=== PATIENT | female | born 1985 | race Caucasian/White ===

== ENCOUNTER 2017-07-07 10:42 | Emergency (ER) | payer SELFPAY ==
[2017-07-07] MEDS ORDERED: OXYCODONE-ACETAMINOPHEN 5-325 MG TABLET PO ONE (11:29)
[2017-07-07] MEDS ORDERED: LIDOCAINE 5% (700 MG) TRANSDERMAL ADH..PATCH TP ONE (11:29)
--- NOTE | 2017-07-07 11:30 | ER Document Report ---
HPI - HPI Patient complains to provider of: r hip pain Onset: Other - 2 wks Onset/Duration: Persistent Quality of pain: Achy Pain Level: 5 Context: Patient presents complaining of right lateral hip pain for the past 2 weeks. Patient states she does do a lot of heavy lifting at her job. Patient denies any specific injury. Associated Symptoms: Other - Right lateral hip pain Exacerbated by: Standing, Movement, Walking Relieved by: Denies Similar symptoms previously: No Recently seen / treated by doctor: No - ROS ROS below otherwise negative: Yes Systems Reviewed and Negative: Yes All other systems reviewed and negative - CONSTITUTIONAL Constitutional: DENIES: Fever - NEURO Neurology: DENIES: Weakness - REPRODUCTIVE Reproductive: DENIES: : - MUSCULOSKELETAL Musculoskeletal: REPORTS: Extremity pain - right hip - DERM Skin Color: Normal Skin Problems: None Past Medical History - General Information source: Patient - Social History Smoking Status: Current Every Day Smoker Smoking Education Provided: Yes Frequency of alcohol use: Rare Drug Abuse: None Occupation: [address] Lives with: Family Family History: Reviewed & Not Pertinent Patient has suicidal ideation: No Patient has homicidal ideation: No - Past Medical History Cardiac Medical History: Denies: Hx Coronary Artery Disease, Hx Hypertension Pulmonary Medical History: Reports: Hx Asthma Endocrine Medical History: Denies: Hx Diabetes Mellitus Type 1, Hx Diabetes Mellitus Type 2 Renal/ Medical History: Denies: Hx Peritoneal Dialysis Past Surgical History: Reports: Hx Section, Hx Umbilical Hernia - Immunizations Hx Diphtheria, Pertussis, Tetanus Vaccination: Yes - already received Vertical Provider Document - CONSTITUTIONAL Agree With Documented VS: Yes Exam Limitations: No Limitations General Appearance: WD/WN, No Apparent Distress - INFECTION CONTROL TRAVEL OUTSIDE OF THE [place] IN LAST 30 DAYS: No - HEENT HEENT: Atraumatic, Normocephalic - NECK Neck: Normal Inspection - RESPIRATORY Respiratory: Breath Sounds Normal, No Respiratory Distress O2 Sat by Pulse Oximetry: 99 - CARDIOVASCULAR Cardiovascular: Regular Rate, Regular Rhythm Pulses: Normal: Posterior tibial, Dorsalis pedis - BACK Back: Normal Inspection. negative: CVA Tenderness-Right, CVA Tenderness-Left - MUSCULOSKELETAL/EXTREMETIES Musculoskeletal/Extremeties: MAEW, Tender - Right hip tenderness over lateral aspect, no dislocation or deformity. Tenderness increases with adduction, No Edema Notes: Normal skin color and temperature overlying joint - NEURO Level of Consciousness: Awake, Alert, Appropriate Motor/Sensory: No Motor Deficit - DERM Integumentary: Warm, Dry, No Rash Course - Vital Signs Vital signs: Temp Pulse Resp BP Pulse Ox 98.5 F 88 16 115/75 99 07/07/17 10:51 07/07/17 10:51 07/07/17 10:51 07/07/17 10:51 07/07/17 10:51 - Diagnostic Test Radiology reviewed: Reports reviewed Discharge - Discharge Clinical Impression: Right hip pain Condition: Stable Disposition: HOME, SELF-CARE Instructions: Anti-Inflammatory Medication ([facility]), Use of Crutches ([facility]), Oral Narcotic Medication ([facility]) Additional Instructions: Return immediately for any new or worsening symptoms Followup with your primary care provider, call tomorrow to make a followup appointment Weightbearing as tolerated Follow-up with orthopedic doctor for further evaluation, call tomorrow for an appointment Prescriptions: Naproxen [Naprosyn 250 Nmg Tablet] 1 tab PO BID #14 tablet Oxycodone HCl/Acetaminophen [Percocet 5-325 mg Tablet] 1 tab PO ASDIR PRN #10 tablet PRN Reason: Forms: Smoking Cessation Education, Return to Work Referrals: CHAVA,NO [Primary Care Provider] - Follow up as needed [facility] [Provider Group] - Follow up as needed [facility] [Provider Group] - Follow up as needed [facility] [Provider Group] - Follow up tomorrow
[2017-07-07] MEDS ORDERED: IBUPROFEN 800 MG TABLET PO ONE (11:31)
--- NOTE | 2017-07-07 12:23 | RADIOLOGY REPORT (SQ) ---
EXAM DESCRIPTION: HIP RIGHT AP/LATERAL COMPLETED DATE/TIME: 07/07/2017 12:11 pm REASON FOR STUDY: r hip pain COMPARISON: None. NUMBER OF VIEWS: Two views. TECHNIQUE: AP pelvis and additional frog-leg view of the right hip. LIMITATIONS: None. FINDINGS: MINERALIZATION: Normal. RIGHT HIP: No fracture or dislocation. No worrisome bone lesions. No contour deformity. No joint sp villa narrowing. LEFT HIP: No fracture or dislocation. No worrisome bone lesions. PUBIS AND ISCHIUM: No fracture. PELVIS: No fracture. SACRUM: No fracture or dislocation. No worrisome bone lesions. LOWER LUMBAR SPINE: No fracture or dislocation. No worrisome bone lesions. No significant disc disea se. SOFT TISSUES: No findings. OTHER: No other significant finding. IMPRESSION: NEGATIVE STUDY OF THE RIGHT HIP. NO EXPLANATION FOR PAIN. TECHNICAL DOCUMENTATION: JOB ID: [id number] [employer]- All Rights Reserved Reading location - IP/workstation name: [email or web address]
[2017-07-07 13:29] VITALS: BP 117/86
== END 2017-07-07 13:26 | disposition home or self-care (01) ==
LOC: ER 10:42
DX: M25.551 Pain in right hip (principal); F17.200 Nicotine dependence, unspecified, uncomplicated; J45.909 Unspecified asthma, uncomplicated
CPT/HCPCS: 99283

== ENCOUNTER 2017-09-19 17:44 | Emergency (ER) | payer SELFPAY ==
[2017-09-19 17:54] VITALS: BP 103/60
== END 2017-09-19 19:41 | disposition left against medical advice (07) ==
LOC: ER 17:44
DX: Z53.21 Procedure and treatment not carried out due to patient leaving prior to being seen by health care provider (principal)

== ENCOUNTER 2018-09-21 11:23 | Outpatient (CLI) | payer MEDICAID ==
[2018-09-21 11:55] LABS: ABSOLUTE BASOPHILS # (AUTO) 0.1 10^3/uL (0.0-0.2); ABSOLUTE EOSINOPHILS # (AUTO) 0.2 10^3/uL (0.0-0.6); ABSOLUTE LYMPHOCYTES (AUTO) 2.3 10^3/uL (0.5-4.7); ABSOLUTE MONOCYTES (AUTO) 0.5 10^3/uL (0.1-1.4); ABSOLUTE NEUT (AUTO) 9.4 10^3/uL (1.7-8.2); BASOPHILS % (AUTO) 0.5 % (0-2); EOSINOPHILS % (AUTO) 1.3 % (0-6); HEMATOCRIT 29.3 % (36.0-47.0); HEMOGLOBIN 9.9 g/dL (12.0-15.5); LYMPHOCYTES % (AUTO) 18.2 % (13-45); MEAN CORPUSCULAR HEMOGLOBIN 29.7 pg (27.0-33.4); MEAN CORPUSCULAR HGB CONC 33.8 g/dL (32.0-36.0); MEAN CORPUSCULAR VOLUME 88 fl (80-97); MONOCYTES % (AUTO) 4.4 % (3-13); PLATELET COUNT 340 10^3/uL (150-450); RED BLOOD COUNT 3.33 10^6/uL (3.72-5.28); RED CELL DISTRIBUTION WIDTH 13.5 % (11.5-14.0); SEGMENTED NEUTROPHILS % (AUTO) 75.6 % (42-78); TOTAL CELLS COUNTED % (AUTO) 100 %; WHITE BLOOD COUNT 12.5 10^3/uL (4.0-10.5)
[2018-09-21 12:03] LABS: APPEARANCE,URINE SLIGHTLY-CLOUDY; BILIRUBIN,URINE NEGATIVE (NEGATIVE); COLOR,URINE AMBER; GLUCOSE, URINE NEGATIVE (NEGATIVE); KETONES,URINE NEGATIVE (NEGATIVE); LEUKOCYTE ESTERASE,URINE TRACE (NEGATIVE); NITRITE,URINE NEGATIVE (NEGATIVE); PROTEIN,URINE 100 mg/dL (NEGATIVE); URINE SPECIFIC GRAVITY 1.016; UROBILINOGEN,URINE NEGATIVE mg/dL (<2.0)
[2018-09-21] MEDS ORDERED: RINGERS SOLUTION,LACTATED 1,000 ML IV PRN (12:08)
[2018-09-21 12:16] LABS: ALANINE AMINOTRANSFERASE 31 U/L (9-52); ALBUMIN 3.8 g/dL (3.5-5.0); ALKALINE PHOSPHATASE 165 U/L (38-126); ANION GAP 9 (5-19); ASPARTATE AMINO TRANSFERASE 24 U/L (14-36); BILIRUBIN,DIRECT 0.4 mg/dL (0.0-0.4); BILIRUBIN,TOTAL 0.5 mg/dL (0.2-1.3); BLOOD UREA NITROGEN 8 mg/dL (7-20); CALCIUM 9.4 mg/dL (8.4-10.2); CARBON DIOXIDE 22 mmol/L (22-30); CHLORIDE 106 mmol/L (98-107); GLUCOSE 79 mg/dL (75-110); SODIUM 136.8 mmol/L (137-145); TOTAL PROTEIN 6.9 g/dL (6.3-8.2); URIC ACID 5.5 mg/dL (2.5-6.2)
[2018-09-21 12:25] LABS: URINE AMPHETAMINES SCREEN NEGATIVE; URINE BARBITURATES SCREEN NEGATIVE; URINE BENZODIAZEPINES SCREEN NEGATIVE; URINE COCAINE SCREEN NEGATIVE; URINE MARIJUANA (THC) SCREEN NEGATIVE; URINE METHADONE SCREEN NEGATIVE; URINE PHENCYCLIDINE SCREEN NEGATIVE
[2018-09-21 12:30] LABS: UR PRO/CREAT RATIO RESULT 1.6 mg/mg (0.0-0.2); URINE PROTEIN 268.9 mg/dL (<12)
[2018-09-21] MEDS ORDERED: DEXTROSE 5%-LACTATED RINGERS 1,000 ML IV ONE (12:59)
--- NOTE | 2018-09-21 14:46 | RADIOLOGY REPORT (SQ) ---
EXAM DESCRIPTION: U/S PROFILE W/O STRESS COMPLETED DATE/TIME: 09/21/2018 2:36 pm REASON FOR STUDY: pre term labor COMPARISON: None. TECHNIQUE: Limited fletcher-scale realtime and static images of the fetus to measure specified parameter s. LIMITATIONS: None. FINDINGS: HEART RATE: 127 beats per minute. KLAUDIA: 16.1 cm. BREATHING MOVEMENT: 2 points. MOVEMENT: 2 points. POSTURE AND TONE: 2 points. QUALITATIVE KLAUDIA: 2 points. OTHER: No other significant finding. IMPRESSION: BIOPHYSICAL PROFILE: 12/07. Trimester of : Third - 28 weeks to delivery COMMENT: BREATHING MOVEMENTS: 2 POINTS: PRESENT 0 POINTS: ABSENT MOTION: 2 POINTS: PRESENT 0 POINTS: ABSENT TONE: 2 POINTS: PRESENT 0 POINTS: ABSENT AMNIOTIC FLUID VOLUME: 2 POINTS: LARGEST POCKET GREATER THAN 2 CM DEPTH. 0 POINTS: NO POCKET OF 2 CM. TECHNICAL DOCUMENTATION: JOB ID: [id number] [employer]- All Rights Reserved Reading location - IP/workstation name: [email or web address]
--- NOTE | 2018-09-21 14:49 | RADIOLOGY REPORT (SQ) ---
EXAM DESCRIPTION: U/S OB 14+ TRNABD 1GES W/O DOP COMPLETED DATE/TIME: 09/21/2018 2:36 pm REASON FOR STUDY: assess growth and placenta COMPARISON: None. TECHNIQUE: Static and Dynamic grayscale imaging performed of gravid uterus using transabdominal appr oach. Additional selected color Doppler and spectral images recorded. All stored on PACS. LIMITATIONS: None. FINDINGS: FETUSES SEEN:1 EGA: 36 weeks 4 days Calculated using BPD,FL,HC,AC documented on images. No discrepancy with clinica l dates. HARRY: 10/15/2018 EFW: 2,874 grams PERCENTILE: 40 seconds KLAUDIA: 16.1 PLACENTA: Anterior. GRADE: II PRESENTATION: Cephalic. ANATOMY: HEART RATE: 141 beats per minute. MATERNAL ADNEXA: Maternal ovaries not visualized. CERVICAL LENGTH: 3.0 cm dye Closed. OTHER: No other significant finding. IMPRESSION: LIVING INTRAUTERINE . ESTIMATED GESTATIONAL AGE 36 weeks 4 days. NO VISUALIZED ANOMALIES. Trimester of : Third trimester - 28 weeks to delivery. TECHNICAL DOCUMENTATION: JOB ID: [id number] [employer]- All Rights Reserved Reading location - IP/workstation name: [email or web address]
--- NOTE | 2018-09-21 15:15 | Non Stress Test Report ---
Non Stress Test Datetime Report Generated by CPN: 09/21/2018 15:14 DEMOGRAPHIC EGA NST: 36.4 INDICATION Indication for Study: Ordered by Provider Indication for Study (NST) Other: proteinria at 36.4 weeks iup VITAL SIGNS Temperature - NST: 98.2 Pulse - NST: 64 RESP - NST: 17 NBPSYS NST: 117 NBPDIA NST: 78 MONITORING Monitor Explained: Monitor Explained; Test Explained; Patient Verbalized Understanding Time on Monitor: 09/21/2018 04:13 Time off Monitor: 09/21/2018 14:38 NST Duration: 625 NST INTERVENTIONS NST Interventions: None Physician Notified NST: Dr Nguyen BABY A: [id number] BABY A Movement : Present Contraction Frequency : 1.5-5 FHR Baseline : 125 Accelerations : 15X15 Decelerations : None Variability : Moderate 6-25bpm NST Review: Meets Criteria for Reactive NST NST Review and Verified By : GRACE Fu Results: Reactive NST REPORT Report Trigger: Send Report
== END 2018-09-21 15:03 | disposition home or self-care (01) ==
LOC: LC 11:23
PROVIDERS: ATTEND Obstetrics & Gynecology Gynecology
PROC: 4A1HXCZ Monitoring of Products of Conception, Cardiac Rate, External Approach (ICD-10-PCS; principal; 2018-09-21)
DX: O14.93 Unspecified pre-eclampsia, third trimester (principal); Z3A.36 36 weeks gestation of pregnancy
CPT/HCPCS: 36415; 59025; 76805; 76819; 80053; 80307; 81001; 82570; 83615; 84156; 84550; 85025

== ENCOUNTER 2018-10-02 19:04 | Inpatient (IN) | payer MEDICAID ==
[2018-10-02] MEDS ORDERED: RINGERS SOLUTION,LACTATED 1,000 ML IV PRN (19:21)
[2018-10-02] MEDS ORDERED: PENICILLIN G POTASSIUM 5,000,000 UNIT in DEXTROSE 5%-WATER 100 ML IV ONE (19:21)
[2018-10-02] MEDS ORDERED: RINGERS SOLUTION,LACTATED 1,000 ML IV ONE (19:21)
[2018-10-02] MEDS ORDERED: OXYTOCIN/NORMAL SALINE 20 UNIT/1,000 ML RTUINJ IV PRN (19:23)
[2018-10-02] MEDS ORDERED: NALBUPHINE HCL INJ 10 MG/1 ML AMPULE ONE (20:03)
[2018-10-02] MEDS ORDERED: PENICILLIN G-K 5 MILLION UNIT VIAL ONE ×2 (20:26→23:24)
--- NOTE | 2018-10-02 20:30 | Admission Physical ---
Datetime Report Generated by CPN: 10/02/2018 20:29 CURRENT ADMISSION Chief Complaint: Uterine Contractions; Signs/Symptoms Gestational HTN Indication for Induction: Gestational HTN; Eclampsia-Mild Indication for Induction- Other: GHTN with P:C c/w now over 300mg protein Admit Impression : Term, Intrauterine ; No Active Labor; Intact Membranes Admit Impression- Other: h/o section. Counseled and desires TOLAC Admit Plan: Admit to Unit; Initiate Protocol ALLERGIES Medication Allergies: Yes Medication Allergies: tramadol/itching (09/21/2018) Latex: No Latex Allergies OBSTETRICAL HISTORY EDC: 10/15/2018 00:00 : 5 Para: 3 Term: 3 : 0 IAB: 1 Ectopic: 0 Livin Cesareans: 1 VBACs: 0 Multiple Births: 0 SEE RECORDS Alcohol: No Marijuana : No Cocaine: No Other Illicit Drugs: No Cigarettes: Current Everyday Smoker. [id number] Cigarette Frequency: 5 - 10 per day Advised to Stop: Yes PHYSICAL EXAM General: Normal HEENT: Normal Neurologic: Normal Thyroid: Deferred Heart: Normal Lungs: Normal Breast: Deferred Back: Normal Abdomen: Normal Genitourinary Exam: Normal Extremities: Normal DTRs: Normal Pelvic Type: Adequate Vital Signs: Reviewed VAGINAL EXAM Dilatation: 2 Effacement: 50 Station: -2 Contraction Comments: 130 MEMBRANES Membranes: Intact FETUS A EGA: 38.1 Monitoring: External US FHR- Baseline: 125 Variability: Moderate 6-25bpm Accelerations: 15X15 Decelerations: None FHR Category: Category I Presentation: Vertex Admit Comment: 32yo at 38+1ega presents for IOL due to GHTN with noted P:C ratio now c/w total protein over 300mg. SHe is currently asymptomatic. Recently dx with Chlamydia on 09/21 - treated 09/26. Partner treated on 09/27. h/o x 2 6#6oz largest baby. C/S in 2014 due to suspected abruption and pp HTN. Desires BTL. 24 hr UTP was 286mg on 09/21. Admit to Labor and delivery for IOL/TOLAC. Cooks catheter placed and and pitocin initiated. Anticipate PLANS FOR LABOR AND DELIVERY Labor and Delivery: None Pain Management: Epidural Feeding Preference: Formula Benefit of Breast Feed Discussed: Yes Circumcision: No INFORMED CONSENT Informed Consent Obtained: Vaginal Delivery; Induction of Labor; Vaginal After ; Risks, Benefits and Alternatives Discussed Signature: with User ID: [email or web address]
[2018-10-02] MEDS ORDERED: OXYTOCIN/NORMAL SALINE 20 UNIT/1,000 ML RTUINJ ONE (20:36)
[2018-10-02] MEDS ORDERED: NALBUPHINE HCL INJ 10 MG/1 ML AMPULE INJ ONE (21:00)
[2018-10-02] MEDS ORDERED: LIDOCAINE 1% INJ-PF (10 MG/ML) 30 ML SDV ONE (21:49)
[2018-10-02] MEDS ORDERED: MISOPROSTOL 0.2 MG TABLET ONE (21:49)
[2018-10-02] MEDS ORDERED: FENTANYL/BUPIVACAINE/NS/PF 300 MCG/150 ML RTUINJ EPI ONE (22:27)
[2018-10-02] MEDS ORDERED: EPHEDRINE SULFATE INJ 50 MG/1 ML AMPULE ONE (22:27)
[2018-10-02] MEDS ORDERED: BUPIVACAINE HCL 0.25 % INJ/PF (2.5 MG/1 ML) 30 ML VIAL ONE (22:28)
--- NOTE | 2018-10-03 00:22 | L&D Progress Notes ---
PROGRESS NOTES Datetime Report Generated by CPN: 10/03/2018 00:21 Comment: 5/70/-[address] and comfortable. AROM with clear fluid. Anticipate Nursing Exam Dilitation: 5.5 Signature: with User ID: [email or web address]
[2018-10-03] MEDS: PENICILLIN G POTASSIUM 2,500,000 UNIT in DEXTROSE 5%-WATER 50 ML IV SCH ×7 (00:24→23:36)
[2018-10-03] MEDS ORDERED: ONDANSETRON 4 MG TAB.RAPDIS ONE (04:08)
[2018-10-03] MEDS ORDERED: PENICILLIN G-K 5 MILLION UNIT VIAL ONE (04:17)
[2018-10-03] MEDS ORDERED: IBUPROFEN 800 MG TABLET ONE (08:52)
[2018-10-03 11:34] LABS: HEMATOCRIT 25.8 % (36.0-47.0); HEMOGLOBIN 8.7 g/dL (12.0-15.5); MEAN CORPUSCULAR HEMOGLOBIN 29.6 pg (27.0-33.4); MEAN CORPUSCULAR HGB CONC 33.9 g/dL (32.0-36.0); MEAN CORPUSCULAR VOLUME 87 fl (80-97); PLATELET COUNT 299 10^3/uL (150-450); RED BLOOD COUNT 2.95 10^6/uL (3.72-5.28); RED CELL DISTRIBUTION WIDTH 13.8 % (11.5-14.0); WHITE BLOOD COUNT 20.3 10^3/uL (4.0-10.5)
[2018-10-03 11:50] LABS: ABSOLUTE LYMPHOCYTES# (MANUAL) 1.8 10^3/uL (0.5-4.7); ABSOLUTE MONOCYTES # (MANUAL) 0.4 10^3/uL (0.1-1.4); ABSOLUTE NEUTROPHILS# (MANUAL) 17.9 10^3/uL (1.7-8.2); BASOPHILS % (MANUAL) 0 % (0-2); EOSINOPHILS % (MANUAL) 1 % (0-6); LYMPHOCYTES % (MANUAL) 7 % (13-45); MONOCYTES % (MANUAL) 2 % (3-13); POLYCHROMASIA SLIGHT; SEGMENTED NEUTROPHILS % (MAN) 88 % (42-78); TOTAL CELLS COUNTED 100
[2018-10-03 11:51] LABS: PLATELET COMMENT ADEQUATE
[2018-10-03] MEDS ORDERED: DIPHENHYDRAMINE HCL 25 MG CAPSULE PO PRN (13:29)
[2018-10-03] MEDS ORDERED: ACETAMINOPHEN 650 MG SUPP.RECT PR PRN (13:29)
[2018-10-03] MEDS ORDERED: ACETAMINOPHEN WITH CODEINE #3 TABLET PO PRN (13:29)
[2018-10-03] MEDS ORDERED: MEASLES,MUMPS&RUBELLA VACC/PF 0.5 ML VIAL SUBCUT PRN (13:29)
[2018-10-03] MEDS ORDERED: OXYTOCIN/NORMAL SALINE 20 UNIT/1,000 ML RTUINJ IV PRN (13:29)
[2018-10-03] MEDS ORDERED: MAGNESIUM HYDROXIDE SUSP 30 ML UDCUP PO PRN (13:29)
[2018-10-03] MEDS ORDERED: BENZOCAINE/MENTHOL AEROSOL SPRAY 56 ML TOP PRN (13:29)
[2018-10-03] MEDS ORDERED: PROMETHAZINE HCL 25 MG TABLET PO PRN (13:29)
[2018-10-03] MEDS ORDERED: ZOLPIDEM TARTRATE 5 MG TABLET PO PRN (13:29)
[2018-10-03] MEDS ORDERED: DIBUCAINE 1% OINTMENT 56 GM TP PRN (13:29)
[2018-10-03] MEDS ORDERED: DIPH/PERTUSS(ACELL)/TETANUS VAC/PF 0.5 ML SYR (>=10YO) IM PRN (13:29)
[2018-10-03] MEDS ORDERED: NA PHOS,M-B/NA PHOS,DI-BA (ADULT) 133 ML ENEMA PR PRN (13:29)
[2018-10-03] MEDS ORDERED: PROMETHAZINE HCL 25 MG SUPP.RECT PR PRN (13:29)
[2018-10-03] MEDS ORDERED: PSEUDOEPHEDRINE HCL 30 MG TABLET PO PRN (13:29)
[2018-10-03] MEDS ORDERED: GLYCERIN/WITCH HAZEL LEAF 1 EACH MED..WIPE TP PRN (13:29)
[2018-10-03] MEDS ORDERED: PROMETHAZINE HCL INJ 25 MG/1 ML VIAL IV PRN (13:29)
[2018-10-03] MEDS ORDERED: (PENDING PHARMACY ID) (Nitrofurantoin Macrocrystal [Macrodantin] 100 MG) PO SCH (13:45)
[2018-10-03] MEDS: IBUPROFEN 800 MG TABLET PO SCH ×2 (16:44→21:13)
[2018-10-03] MEDS: DOCUSATE SODIUM 100 MG CAPSULE PO SCH (17:42)
[2018-10-03] MEDS: FERROUS SULFATE 325 MG TABLET PO SCH (17:42)
[2018-10-03] MEDS: ACETAMINOPHEN WITH CODEINE #3 TABLET PO PRN (17:43)
[2018-10-03] MEDS ORDERED: FERROUS SULFATE 325 MG TABLET PO SCH (18:00)
[2018-10-03] MEDS: FAMOTIDINE 20 MG TABLET PO SCH (21:13)
[2018-10-04] MEDS: PENICILLIN G POTASSIUM 2,500,000 UNIT in DEXTROSE 5%-WATER 50 ML IV SCH (03:24)
[2018-10-04] MEDS: IBUPROFEN 800 MG TABLET PO SCH ×3 (05:31→21:18)
[2018-10-04 06:55] LABS: ABSOLUTE BASOPHILS # (AUTO) 0.1 10^3/uL (0.0-0.2); ABSOLUTE EOSINOPHILS # (AUTO) 0.2 10^3/uL (0.0-0.6); ABSOLUTE LYMPHOCYTES (AUTO) 3.5 10^3/uL (0.5-4.7); ABSOLUTE MONOCYTES (AUTO) 0.8 10^3/uL (0.1-1.4); ABSOLUTE NEUT (AUTO) 9.6 10^3/uL (1.7-8.2); BASOPHILS % (AUTO) 0.7 % (0-2); EOSINOPHILS % (AUTO) 1.7 % (0-6); HEMATOCRIT 20.8 % (36.0-47.0); LYMPHOCYTES % (AUTO) 24.8 % (13-45); MEAN CORPUSCULAR HEMOGLOBIN 29.5 pg (27.0-33.4); MEAN CORPUSCULAR HGB CONC 34.1 g/dL (32.0-36.0); MEAN CORPUSCULAR VOLUME 87 fl (80-97); MONOCYTES % (AUTO) 5.4 % (3-13); PLATELET COUNT 278 10^3/uL (150-450); RED BLOOD COUNT 2.41 10^6/uL (3.72-5.28); RED CELL DISTRIBUTION WIDTH 13.7 % (11.5-14.0); SEGMENTED NEUTROPHILS % (AUTO) 67.4 % (42-78); TOTAL CELLS COUNTED % (AUTO) 100 %; WHITE BLOOD COUNT 14.2 10^3/uL (4.0-10.5)
[2018-10-04 07:05] LABS: HEMOGLOBIN 7.1 g/dL (12.0-15.5)
[2018-10-04] MEDS: ACETAMINOPHEN WITH CODEINE #3 TABLET PO PRN ×2 (08:15→15:26)
--- NOTE | 2018-10-04 08:17 | Delivery Summary ---
Del Sum A-C Datetime Report Generated by CPN: 10/04/2018 08:17 DELIVERY PERSONNEL DELIVERY PERSONNEL: [id number] Delivery Doctor:: Hilary Lakhani MD Anesthesiologist:: Luke Reina MD Labor and Delivery Nurse:: Mariluz Negron RN Labor and Delivery Nurse:: Abigail Donovan RN Clip Loading Machine Adjuster/ICE CREAM MAKER: ST Julia Clip Loading Machine Adjuster/ICE CREAM MAKER: Betsey Bryson, ST MATERNAL INFORMATION Delivery Anesthesia: Epidural Medications After Delivery: Pitocin Drip 20 Units/1000ml NSS Maternal Complications: Other Other Maternal Complications: HTN Complication Details: TOLAC Provider Comments: VMI delivered in MIGUEL presentation with tight nuchal cord delivered through. Shoulders and body delivered without difficulty. Cord doubly clamped and cut. Infant to maternal abdomen for NRP. Placenta delivered intact spontaneously. FF at U. Mother and baby stable upon provider leaving the room. Good hemostasis after repair. LABOR SUMMARY EDC: 10/15/2018 00:00 No. Babies in Womb: 1 Attempted: Yes Labor Anesthesia: Epidural LABOR INFORMATION Reason for Induction: Gestational Hypertension; Pre-Eclampsia; Other Reason for Induction- Other: TOLAC Onset of Labor: 10/02/2018 22:24 Complete Dilatation: 10/03/2018 06:22 Cervical Ripening Agents: Valdivia Balloon Other Ripening Agents: pitocin/cooks Oxytocin: Induction Group B Beta Strep: Positive Antibiotics # of Doses: 3 Antibiotics Time of Last Dose: 0441 Name of Antibiotic Given: PCN Steroids Given: None Reason Steroids Not Administered: Not Applicable MEMBRANES Membranes Rupture Method: Artificial Rupture of Membranes: 10/02/2018 23:50 Length of Rupture (hr): 6.98 Amniotic Fluid Color: Clear Amniotic Fluid Amount: Moderate Amniotic Fluid Odor: Normal STAGES OF LABOR Stage 1 hr: 7 Stage 1 min: 58 Stage 2 hr: 0 Stage 2 min: 27 Stage 3 hr: 0 Stage 3 min: 3 Total Time in Labor hr: 8 Total Time in Labor min: 28 VAGINAL DELIVERY Episiotomy: None Laceration #1: Perineal Laceration Extension #1: N/A Laceration Repair: Yes Laceration Repair Note: perineal abrasion, single suture placed for hemostasis Sponge Count Correct: N/A Sharps Count Correct: Yes CSECTION DELIVERY Primary Indication: N/A Secondary Indication: N/A CSection Incidence: N/A Labor: N/A Elective: N/A CSection Incision: N/A BABY A INFORMATION Infant Delivery Date/Time: 10/03/2018 06:49 Method of Delivery: Vaginal Method of Delivery: Vaginal Born in Route : No : Successful Forceps: N/A Vacuum Extraction: N/A Shoulder Dystocia : No PRESENTATION/POSITION BABY A Presentation: Cephalic Presentation: Cephalic Presentation: Cephalic Cephalic Presentation: Vertex Vertex Position: Left Occipital Anterior Breech Presentation: N/A PLACENTA INFORMATION BABY A Placenta Delivery Time : 10/03/2018 06:52 Placenta Method of Delivery: Spontaneous Placenta Status: Delivered SCORES BABY A Heart Rate 1 min: >100 bpm Resp Effort 1 min: Good Cry Reflex Irritability 1 min: Cough or Sneeze or Pulls Away Muscle Tone 1 min: Active Motion Color 1 min: Blue/Pale Resuscitation Effort 1 min: Tactile Stimulation SCORE 1 MIN: 8 Heart Rate 5 min: >100 bpm Resp Effort 5 min: Good Cry Reflex Irritability 5 min: Cough or Sneeze or Pulls Away Muscle Tone 5 min: Active Motion Color 5 min: Body Slick, Extremities Blue Resuscitation Effort 5 min: Tactile Stimulation SCORE 5 MIN: 9 INFANT INFORMATION BABY A Gestational Age at Delivery: 38.2 Gestational Status: Early Term- 37- 38.6 Weeks Outcome : Liveborn Infant Condition : Stable Sex: Male Sex: Male IDENTIFICATION BABY A Infant Verification Date/Time: 10/03/2018 06:57 ID Band Number: [id number] Mother's Name Verified: Yes RN Verifying Infant: Jb Glover, RN _ S. [place], RNC WEIGHT/LENGTH BABY A Infant Birthweight (gm): 3150 Infant Weight (lb): 6 Infant Weight (oz): 15 Infant Length (in): 20.50 Length (cm): 52.07 CORD INFORMATION BABY A No. Cord Vessels: 3 Nuchal Cord : Around Neck x1, Loose Cord Blood Taken: Yes-For Storage (Mom's Blood type +) ASSESSMENT BABY A Infant Complications: Multiple Variable Decels Physical Findings at Delivery: Molding of the Head Infant Respirations: Appears Normal Infant Care By: E. Jilek, RN Transferred To: Remains with Mother BABY B INFORMATION : N/A SIGNATURES Signature: with User ID: [email or web address]
[2018-10-04] MEDS: PRENATAL VITAMIN W DHA CAPSULE PO SCH (10:07)
[2018-10-04] MEDS: SENNOSIDES/DOCUSATE 8.6-50 MG 1 EACH TABLET PO SCH (10:07)
[2018-10-04] MEDS: DOCUSATE SODIUM 100 MG CAPSULE PO SCH ×2 (10:07→17:09)
[2018-10-04] MEDS: FERROUS SULFATE 325 MG TABLET PO SCH ×2 (10:08→17:09)
[2018-10-04] MEDS: FAMOTIDINE 20 MG TABLET PO SCH ×2 (10:08→21:18)
--- NOTE | 2018-10-04 11:43 | PDOC PROGRESS REPORT ---
Addendum entered and electronically signed by RYAN BAGLEY CNM 10/04/18 14:28: Provider Note Provider Note: Call received from office with positive chlamydia results. Pt. states she took medication last week and so did her boyfriend and they have not had intercourse since. Pt. agreeable to repeat dose to be safe. Will obtain MAK at pp visit. order placed for 1g azithromycin while inpatient. Also discussed recommendation for blood transfusion vs iron. Pt. unsure, desires to think about it at this time. Feels very weak but denies sob/dizziness/lightheadedness or other concerns. Original Note: Subjective-OB Progress Note for:: 10/04/18 Subjective: 32yo G5 now P4 s/p ppd 1. Patient ambulating without difficulty. Pain well controlled with medication. Denies any concerns Physical Exam (OB) Vital Signs: Temp Pulse Resp BP Pulse Ox 97.8 F 60 18 142/85 H 97 10/04/18 08:58 10/04/18 08:58 10/04/18 08:58 10/04/18 08:58 10/04/18 08:58 Intake & Output 10/03/18 10/04/18 10/05/18 06:59 06:59 06:59 Intake Total 300 Balance 300 Weight 70.76 kg - General General Appearance: Appears well In distress: None - PIH/Pre-Eclampsia DTR's: 1 + Clonus: Negative Headache: Absent Epigastric Pain: No Visual Changes: No - Episiotomy/Laceration Site Condition: Well Approximated - Lochia Lochia Amount: Scant < 10 ml Lochia Color: Rubra/Red - Abdomen Description: Soft, Round Hernia Present: No Fundal Description: Firm, Midline Fundal Height: u/u - u/2 - Respiratory Respiratory Status: No respiratory distress - Extremities Upper extremity: Normal inspection Lower extremities: Normal inspection - Neurological Cognition: Normal Orientation: AAOx4 - Psychological Associated symptoms: Normal affect, Normal mood Objective-Diagnostic Laboratory: 10/04/18 06:37 10/03/18 10/04/18 11:20 06:37 WBC 20.3 H 14.2 H RBC 2.95 L 2.41 L Hgb 8.7 L 7.1 L Hct 25.8 L 20.8 L MCV 87 87 MCH 29.6 29.5 MCHC 33.9 34.1 RDW 13.8 13.7 Plt Count 299 278 Seg Neutrophils % Not Reportable 67.4 Lymphocytes % Not Reportable 24.8 Monocytes % Not Reportable 5.4 Eosinophils % Not Reportable 1.7 Basophils % Not Reportable 0.7 Absolute Neutrophils Not Reportable 9.6 H Absolute Lymphocytes Not Reportable 3.5 Absolute Monocytes Not Reportable 0.8 Absolute Eosinophils Not Reportable 0.2 Absolute Basophils Not Reportable 0.1 Assessment and Plan(PN) - Assessment and Plan (1) Anemia, iron deficiency Qualifiers: Iron deficiency anemia type: unspecified iron deficiency Qualified Code(s): D50.9 - Iron deficiency anemia, unspecified Is this a current diagnosis for this admission?: Yes Plan: increase dietary iron and FeSO4 BID. continue to monitor for s/s of decompensa tion. Will discuss need for iron infusion with Dr. Cortez (2) Carrier of group B Streptococcus Is this a current diagnosis for this admission?: Yes Plan: treated adequately in labor (3) Encounter for trial of labor Is this a current diagnosis for this admission?: Yes Plan: successful (4) Pre-eclampsia Qualifiers: Trimester: third trimester Qualified Code(s): O14.93 - Unspecified pre- eclampsia, third trimester Is this a current diagnosis for this admission?: Yes Plan: delivered, continue to monitor for s/s of post pre-e (5) Previous section Is this a current diagnosis for this admission?: Yes Plan: successful , routine pp care (6) Vaginal delivery following previous section, delivered Is this a current diagnosis for this admission?: Yes Plan: routine pp care (7) Tobacco smoking affecting Qualifiers: Trimester: unspecified trimester Qualified Code(s): O99.330 - Smoking (tobacco) complicating , unspecified trimester Is this a current diagnosis for this admission?: Yes Plan: smoking cessation encouraged (8) Acute blood loss anemia Is this a current diagnosis for this admission?: Yes Plan: denies sob/dizzinness/lightheadedness or other concerns. Continue to monitor s/s of decompensation/need for blood/iron infusion. - Time Spent with Patient Time with patient: Less than 15 minutes Smoking Education Provided: Over 3 minutes Medications reviewed and adjusted accordingly: Yes - Disposition Anticipated Discharge: Home Within: within 24 hours
[2018-10-04] MEDS ORDERED: AZITHROMYCIN 250 MG TABLET PO ONE (15:00)
[2018-10-04] MEDS ORDERED: NORMAL SALINE 250 ML IV PRN (15:31)
[2018-10-05] MEDS ORDERED: NIFEDIPINE 30 MG TAB.ER.24 PO ONE (02:00)
[2018-10-05 03:35] LABS: ABSOLUTE BASOPHILS # (AUTO) 0.1 10^3/uL (0.0-0.2); ABSOLUTE EOSINOPHILS # (AUTO) 0.3 10^3/uL (0.0-0.6); ABSOLUTE LYMPHOCYTES (AUTO) 4.2 10^3/uL (0.5-4.7); ABSOLUTE MONOCYTES (AUTO) 0.8 10^3/uL (0.1-1.4); ABSOLUTE NEUT (AUTO) 8.6 10^3/uL (1.7-8.2); BASOPHILS % (AUTO) 0.8 % (0-2); EOSINOPHILS % (AUTO) 1.8 % (0-6); HEMATOCRIT 28.8 % (36.0-47.0); LYMPHOCYTES % (AUTO) 29.9 % (13-45); MEAN CORPUSCULAR HEMOGLOBIN 29.5 pg (27.0-33.4); MEAN CORPUSCULAR HGB CONC 34.3 g/dL (32.0-36.0); MEAN CORPUSCULAR VOLUME 86 fl (80-97); PLATELET COUNT 270 10^3/uL (150-450); RED BLOOD COUNT 3.35 10^6/uL (3.72-5.28); RED CELL DISTRIBUTION WIDTH 13.9 % (11.5-14.0); SEGMENTED NEUTROPHILS % (AUTO) 61.5 % (42-78); TOTAL CELLS COUNTED % (AUTO) 100 %
[2018-10-05 03:36] LABS: HEMOGLOBIN 9.9 g/dL (12.0-15.5)
[2018-10-05] MEDS: IBUPROFEN 800 MG TABLET PO SCH (05:18)
[2018-10-05] MEDS ORDERED: NIFEDIPINE 30 MG TAB.ER.24 PO SCH (10:00)
--- NOTE | 2018-10-05 10:13 | PDOC PROGRESS REPORT ---
Subjective-OB Progress Note for:: 10/05/18 Subjective: Ready for discharge. Physical Exam (OB) Vital Signs: Temp Pulse Resp BP Pulse Ox 97.8 F 61 16 152/90 H 100 10/05/18 08:33 10/05/18 08:33 10/05/18 08:43 10/05/18 08:33 10/05/18 08:33 Intake & Output 10/04/18 10/05/18 10/06/18 06:59 06:59 06:59 Intake Total 900 Balance 900 Weight 70.76 kg - PIH/Pre-Eclampsia DTR's: 2 + Clonus: Negative Headache: Absent Epigastric Pain: No Visual Changes: No - Lochia Lochia Amount: Scant < 10 ml Lochia Color: Rubra/Red - Abdomen Description: Soft Hernia Present: No Bowel Sounds: Normoactive Flatus Presence: Present Stool: Yes Fundal Description: Firm, Midline Fundal Height: u/u - u/2 Objective-Diagnostic Laboratory: 10/05/18 03:20 10/02/18 10/05/18 19:50 03:20 WBC 14.0 H RBC 3.35 L Hgb 9.9 L D Hct 28.8 L MCV 86 MCH 29.5 MCHC 34.3 RDW 13.9 Plt Count 270 Seg Neutrophils % 61.5 Lymphocytes % 29.9 Monocytes % 6.0 Eosinophils % 1.8 Basophils % 0.8 Absolute Neutrophils 8.6 H Absolute Lymphocytes 4.2 Absolute Monocytes 0.8 Absolute Eosinophils 0.3 Absolute Basophils 0.1 Blood Type A POSITIVE Antibody Screen NEGATIVE Assessment and Plan(PN) - Time Spent with Patient Smoking Education Provided: Over 3 minutes Medications reviewed and adjusted accordingly: Yes - Disposition Anticipated Discharge: Home
[2018-10-05] MEDS: FERROUS SULFATE 325 MG TABLET PO SCH (10:14)
[2018-10-05] MEDS: DOCUSATE SODIUM 100 MG CAPSULE PO SCH (10:14)
[2018-10-05] MEDS: FAMOTIDINE 20 MG TABLET PO SCH (10:15)
[2018-10-05] MEDS: SENNOSIDES/DOCUSATE 8.6-50 MG 1 EACH TABLET PO SCH (10:15)
[2018-10-05] MEDS: PRENATAL VITAMIN W DHA CAPSULE PO SCH (10:15)
[2018-10-05 10:16] VITALS: BP 144/77
--- NOTE | 2018-10-05 10:22 | PDOC DISCHARGE SUMMARY ---
Final Diagnosis Discharge Date: 10/05/18 - Final Diagnosis (1) Acute blood loss anemia Is this a current diagnosis for this admission?: Yes (2) Anemia, iron deficiency Is this a current diagnosis for this admission?: Yes (3) Carrier of group B Streptococcus Is this a current diagnosis for this admission?: Yes (4) Chlamydia infection in Is this a current diagnosis for this admission?: Yes (5) Encounter for trial of labor Is this a current diagnosis for this admission?: Yes (6) Gestational hypertension Is this a current diagnosis for this admission?: Yes (7) Pre-eclampsia Is this a current diagnosis for this admission?: Yes (8) Previous section Is this a current diagnosis for this admission?: Yes Discharge Data - Discharge Medication Prescriptions: Nifedipine [Procardia XL 30 mg Tablet] 30 mg PO DAILY #30 tab.er.24 Home Medications: Ferrous Sulfate [Iron] 325 mg PO BID 09/21/18 Nitrofurantoin Macrocrystal [Macrodantin] 100 mg PO DAILY 09/21/18 No122/Iron/Folic Acid [ Multi Tablet] 1 each PO DAILY 09/21/18 Ferrous Sulfate [Feosol 325 mg Tablet] 325 mg PO BID tablet 10/05/18 Nifedipine [Procardia XL 30 mg Tablet] 30 mg PO DAILY #30 tab.er.24 10/05/18 Gestational Age: 38.2 wks Reason(s) for Admission: Onset of Labor Procedures: Ultrasound Intrapartum Procedure(s): Spontaneous Vaginal Delivery Complication(s): Laceration-Perineal - [place] Data Baby 1 Male at 1 minute: 8 at 5 minutes: 9 Weight: 3.147 kg Home with Mother: Yes Complications: No - Diagnosis Test Laboratory: Temp Pulse Resp BP Pulse Ox 97.8 F 61 16 144/77 H 100 10/05/18 10:14 10/05/18 10:14 10/05/18 10:14 10/05/18 10:14 10/05/18 10:14 10/03/18 10/04/18 10/05/18 11:20 06:37 03:20 RBC 2.95 L 2.41 L 3.35 L Hgb 8.7 L 7.1 L 9.9 L D Hct 25.8 L 20.8 L 28.8 L - Discharge information/Instructions Discharge Activity: Activity As Tolerated, Balance Activity w/Rest, Pelvic Rest, Slowly Increase Activity, No tub bath Discharge Diet: Regular Disposition: HOME, SELF-CARE Follow [facility] with: [facility] in: 1, Weeks
== END 2018-10-05 13:26 | disposition home or self-care (01) | DRG 807 ==
LOC: LR 19:04 → 2S 10-03 10:00
PROVIDERS: ADMIT Student in an Organized Health Care Education/Training Program; ATTEND Student in an Organized Health Care Education/Training Program
PROC: 10907ZC Drainage of Amniotic Fluid, Therapeutic from Products of Conception, Via Natural or Artificial Opening (ICD-10-PCS; 2018-10-02)
PROC: 10E0XZZ Delivery of Products of Conception, External Approach (ICD-10-PCS; principal; 2018-10-03)
PROC: 0HQ9XZZ Repair Perineum Skin, External Approach (ICD-10-PCS; 2018-10-03)
DX: O13.4 Gestational [pregnancy-induced] hypertension without significant proteinuria, complicating childbirth (principal); Z37.0 Single live birth; O99.334 Smoking (tobacco) complicating childbirth; F17.210 Nicotine dependence, cigarettes, uncomplicated; O34.219 Maternal care for unspecified type scar from previous cesarean delivery; Z3A.38 38 weeks gestation of pregnancy; O69.1XX0 Labor and delivery complicated by cord around neck, with compression, not applicable or unspecified; O70.0 First degree perineal laceration during delivery
CPT/HCPCS: 36415; 36430; 85025; 86592; 86850; 86900; 86901; 86920; C1726; J2300; J2540; J2590; J3010; J3490; P9016; S0119

== ENCOUNTER → 2018-10-02 | Outpatient (CLI) | payer MEDICAID ==
[~2018-10-02] MED LIST: NALBUPHINE HCL INJ 10 MG/1 ML AMPULE INJ ONE
[2018-10-02 16:00] LABS: HEMATOCRIT 26.8 % (36.0-47.0); HEMOGLOBIN 9.1 g/dL (12.0-15.5); MEAN CORPUSCULAR HEMOGLOBIN 29.7 pg (27.0-33.4); MEAN CORPUSCULAR HGB CONC 34.1 g/dL (32.0-36.0); MEAN CORPUSCULAR VOLUME 87 fl (80-97); PLATELET COUNT 306 10^3/uL (150-450); RED BLOOD COUNT 3.08 10^6/uL (3.72-5.28); RED CELL DISTRIBUTION WIDTH 13.9 % (11.5-14.0); WHITE BLOOD COUNT 11.9 10^3/uL (4.0-10.5)
[2018-10-02 16:01] LABS: APPEARANCE,URINE SLIGHTLY-CLOUDY; BILIRUBIN,URINE NEGATIVE (NEGATIVE); COLOR,URINE YELLOW; GLUCOSE, URINE NEGATIVE (NEGATIVE); KETONES,URINE NEGATIVE (NEGATIVE); LEUKOCYTE ESTERASE,URINE NEGATIVE (NEGATIVE); NITRITE,URINE NEGATIVE (NEGATIVE); PROTEIN,URINE 100 mg/dL (NEGATIVE); URINE SPECIFIC GRAVITY 1.019; UROBILINOGEN,URINE NEGATIVE mg/dL (<2.0)
[2018-10-02 16:09] LABS: ALANINE AMINOTRANSFERASE 20 U/L (9-52); ALBUMIN 3.6 g/dL (3.5-5.0); ALKALINE PHOSPHATASE 155 U/L (38-126); ANION GAP 8 (5-19); ASPARTATE AMINO TRANSFERASE 15 U/L (14-36); BILIRUBIN,DIRECT 0.3 mg/dL (0.0-0.4); BILIRUBIN,TOTAL 0.5 mg/dL (0.2-1.3); BLOOD UREA NITROGEN 9 mg/dL (7-20); CALCIUM 9.2 mg/dL (8.4-10.2); CARBON DIOXIDE 22 mmol/L (22-30); CHLORIDE 105 mmol/L (98-107); GLUCOSE 87 mg/dL (75-110); POTASSIUM 3.8 mmol/L (3.6-5.0); SODIUM 134.9 mmol/L (137-145); TOTAL PROTEIN 6.3 g/dL (6.3-8.2); URIC ACID 5.3 mg/dL (2.5-6.2)
[2018-10-02 16:21] LABS: URINE AMPHETAMINES SCREEN NEGATIVE; URINE BARBITURATES SCREEN NEGATIVE; URINE BENZODIAZEPINES SCREEN NEGATIVE; URINE COCAINE SCREEN NEGATIVE; URINE MARIJUANA (THC) SCREEN NEGATIVE; URINE METHADONE SCREEN NEGATIVE; URINE PHENCYCLIDINE SCREEN NEGATIVE
[2018-10-02 16:31] LABS: URINE CREATININE 177.3 mg/dL (16-327)
[2018-10-02 16:38] LABS: UR PRO/CREAT RATIO RESULT 1.7 mg/mg (0.0-0.2); URINE PROTEIN 305.5 mg/dL (<12)
[2018-10-02 19:06] LABS: IRON(TIBC) 24.2 ug/dL (37-170)
[2018-10-02 20:15] LABS: FOLATE 5.63 ng/mL (>2.76)
== END ==
LOC: LC 15:12
PROVIDERS: ATTEND Student in an Organized Health Care Education/Training Program
PROC: 4A1HXCZ Monitoring of Products of Conception, Cardiac Rate, External Approach (ICD-10-PCS; principal; 2018-10-02)
DX: Z34.93 Encounter for supervision of normal pregnancy, unspecified, third trimester (principal)
CPT/HCPCS: 36415; 59025; 80053; 80307; 81005; 82570; 82607; 82728; 82746; 83540; 83550; 83615; 84156; 84550; 85027

== ENCOUNTER 2018-11-22 10:28 | Day surgery (SDC) | payer MEDICAID ==
[~2018-11-22 10:28] MED LIST changes: +BUPIVACAINE HCL 0.25 % INJ/PF (2.5 MG/1 ML) 30 ML VIAL ONE; -NALBUPHINE HCL INJ 10 MG/1 ML AMPULE INJ ONE
[2018-11-22 11:22] LABS: HEMATOCRIT 33.9 % (36.0-47.0); HEMOGLOBIN 11.9 g/dL (12.0-15.5); MEAN CORPUSCULAR HEMOGLOBIN 30.2 pg (27.0-33.4); MEAN CORPUSCULAR VOLUME 86 fl (80-97); PLATELET COUNT 378 10^3/uL (150-450); RED BLOOD COUNT 3.93 10^6/uL (3.72-5.28); RED CELL DISTRIBUTION WIDTH 15.8 % (11.5-14.0); WHITE BLOOD COUNT 8.4 10^3/uL (4.0-10.5)
[2018-11-22] MEDS ORDERED: FENTANYL CITRATE INJ/PF 250 MCG/5 ML AMPULE ONE (12:23)
[2018-11-22] MEDS ORDERED: MIDAZOLAM 2 MG/2 ML INJ ONE (12:23)
[2018-11-22] MEDS ORDERED: PROPOFOL INJ 200 MG/20 ML VIAL IV ONE (12:24)
[2018-11-22] MEDS ORDERED: MEPERIDINE HCL/PF INJ 25 MG/1 ML DISP.SYRIN IV PRN (13:04)
[2018-11-22] MEDS ORDERED: FENTANYL CITRATE INJ/PF 100 MCG/2 ML AMPUL IV PRN ×3 (13:04)
[2018-11-22] MEDS ORDERED: DIPHENHYDRAMINE HCL 50 MG/ML VIAL IV PRN (13:04)
[2018-11-22] MEDS ORDERED: OXYCODONE-ACETAMINOPHEN 5-325 MG TABLET PO PRN ×4 (13:04→14:15)
[2018-11-22] MEDS ORDERED: PROMETHAZINE HCL INJ 25 MG/1 ML VIAL IV PRN ×2 (13:04)
[2018-11-22] MEDS: FENTANYL CITRATE INJ/PF 100 MCG/2 ML AMPUL ONE ×2 (13:50→14:00)
[2018-11-22] MEDS ORDERED: HYDROMORPHONE HCL INJ/PF 2 MG/ML AMPULE IV PRN (14:13)
[2018-11-22] MEDS ORDERED: RINGERS SOLUTION,LACTATED 1,000 ML IV PRN (14:13)
[2018-11-22] MEDS ORDERED: IBUPROFEN 800 MG TABLET PO PRN (14:14)
[2018-11-22] MEDS ORDERED: HYDROMORPHONE HCL INJ/PF 2 MG/ML AMPULE ONE (14:33)
[2018-11-22] MEDS ORDERED: NEOSTIGMINE METHYLSULFATE 10 MG/10 ML VIAL ONE (14:59)
[2018-11-22] MEDS ORDERED: LIDOCAINE 2% INJ-PF (20 MG/ML) 2 ML AMPUL ONE (14:59)
[2018-11-22] MEDS ORDERED: GLYCOPYRROLATE 1 MG/5 ML VIAL ONE (14:59)
[2018-11-22] MEDS ORDERED: DEXAMETHASONE SOD PHOSPHATE INJ 4 MG/1 ML VIAL ONE (14:59)
[2018-11-22] MEDS ORDERED: ROCURONIUM BROMIDE INJ 50 MG/5 ML VIAL IV ONE (14:59)
[2018-11-22] MEDS ORDERED: METOCLOPRAMIDE HCL INJ/PF 10 MG/2 ML SDV ONE (14:59)
[2018-11-22] MEDS ORDERED: KETOROLAC TROMETHAMINE 60 MG/2 ML SDV ONE (14:59)
[2018-11-22] MEDS ORDERED: ONDANSETRON HCL INJ/PF 4 MG/2 ML SDV ONE (15:11)
[2018-11-22 16:13] VITALS: BP 139/83
--- NOTE | 2018-11-22 23:09 | Operative Report ---
Operative Report DATE OF SURGERY: 11/22/18 PREOPERATIVE DIAGNOSIS: Multiparity, Undesired Feritlity POSTOPERATIVE DIAGNOSIS: ADAM - diffuse endometriosis, pelvic adhesions OPERATION: EUA, L/S Bilateral tubal ligation with Filschie Clips SURGEON: OBI DOYLE ANESTHESIA: GA TISSUE REMOVED OR ALTERED: None COMPLICATIONS: Filschie clip malfunction (that clip was discarded). Lot # [id number] ESTIMATED BLOOD LOSS: 5ml INTRAOPERATIVE FINDINGS: 8wks AV uterus, no adnexal masses. Diffuse endometriosis throughout pelvis and adnexa both anterior to bladder and posterior, scarring from prior endometriosis also noted. PROCEDURE: Anesthesiologist: Meron Jenkins MD, CRNA IV fluids: [1000ml] Urine output: [100ml] Indications: [33yo with recent successful presents for tubal sterilizations. She is multiparous and is 100% sure that she has completed childbearing. She was counseled on her options and desires permanent sterilization. The risks, benefits, alternatives were reviewed and she desires to proceed with planned procedure. ] Procedure: The patient was taken to the operating room where general anesthesia was obtained without difficulty. The patient was then examined under anesthesia with findings as noted above with a small anteverted uterus and no adnexal mass. She was then placed in dorsal supine lithotomy position and prepped and draped in the normal sterile fashion. [place]orne speculum was then placed in the patient's vagina and the anterior lip of the cervix grasped with a single-tooth tenaculum. A [place] uterine manipulator was then advanced into the uterus to provide a means of manipulation of the uterus. The speculum and tenaculum were then removed from the patient's cervix and vagina. Attention was then turned to the patient's abdomen where a 5 mm infraumbilical skin incision was then made. The Optiview trocar with 0 laparoscope was then advanced without difficulty under direct visualization with the Optiview trocar. This was performed while tenting the abdominal wall and these will fashion. Intraperitoneal placement was confirmed by the direct visualization. Pneumoperitoneum was then obtained with approximately 4 L carbon dioxide gas. Survey of the patient's abdomen and pelvis revealed findings as noted above. A second skin incision was then made approximately 2cm suprapubically in the midline. These incisions were made under direct visualization with the laparoscope. The second trochars was then advanced under direct visualization of the laparoscope at the sites. The left fallopian tube was then identified and followed out to the fimbriated end and the Filschie clip was attempted to be placed in the mid ampuallary portion of the fallopian tube but this clip was noted to bend in take off man and was removed from the abdomen and the 2nd clip from this set was placed in this position. At this time 2nd set of Filschie clips was obtained and clip from new set was placed approximately 1 cm from the previous clip. The left ovary was noted to be normal and vasculature remained intact to this ovary. Attention was then turned to the right adnexa at which time the right fallopian tube was identified and followed out to the fimbriated end and the Filschie clip was placed in the mid ampuallary portion of the fallopian tube . The right ovary was noted to be normal and vasculature remained intact to this ovary. All operative sites were visualized and noted to be hemostatic. The additional trochar in the midline was removed under direct visualization. The 5 mm trocar was then removed after abdominal insufflation was removed. The skin at all trocar sites were closed with 3-0 Monocryl in a subcuticular fashion with overlying Dermabond. No antibiotics were indicated for this procedure. After completion of skin closure of the trocar sites attention was then turned to the vagina where the uterine manipulator was removed and the bivalve speculum was replaced. Silver nitrate was applied to the tenaculum sites for hemostasis and the speculum was removed. Sponge lap needle and instrument counts were correct 3. The patient tolerated the procedure well and was taken to the recovery area awake and in stable condition.
== END 2018-11-22 16:00 | disposition home or self-care (01) ==
LOC: OROUT 10:28 → EDSTATUS 12:00 → OROUT 16:00
PROVIDERS: ATTEND Student in an Organized Health Care Education/Training Program
DX: Z30.2 Encounter for sterilization (principal); N80.2 Endometriosis of fallopian tube; N80.3 Endometriosis of pelvic peritoneum; N80.8 Other endometriosis; N73.6 Female pelvic peritoneal adhesions (postinfective); Z32.02 Encounter for pregnancy test, result negative; F17.210 Nicotine dependence, cigarettes, uncomplicated
CPT/HCPCS: 36415; 85027; 81025; 00851; 58671; J2250; J3490 ×3; J1100; J1885; J3010 ×2; J2765; J2710; J1170; J2405; S0020; J2704; 851

== ENCOUNTER 2019-12-07 17:52 | Emergency (ER) | payer MEDICAID ==
[2019-12-07 17:58] VITALS: BP 127/89
== END 2019-12-07 19:00 | disposition left against medical advice (07) ==
LOC: ER 17:52
DX: Z53.21 Procedure and treatment not carried out due to patient leaving prior to being seen by health care provider (principal)